=== PATIENT | male | born 1980 | race Caucasian/White ===

== ENCOUNTER 2016-10-19 10:06 | Emergency (ER) | payer BC, OTHER ==
[~2016-10-19] VITALS: Ht 193 cm; Wt 117.6 kg
[2016-10-19 10:15] VITALS: BP 148/88
[2016-10-19] MEDS ORDERED: OXYMETAZOLINE NASAL SPRAY 0.05%, 15ML ONE (10:44)
[2016-10-19] MEDS ORDERED: SILVER NITRATE STICK TP ONE ×2 (10:49→11:11)
[2016-10-19] MEDS ORDERED: BACITRACIN ZINC OINT 500U/GM, 0.9 GM ONE (11:11)
[2016-10-19] MEDS ORDERED: PHENYLEPHRINE NASAL 1%, 15ML SPRAY ONE (11:12)
== END 2016-10-19 13:13 | disposition home or self-care (01) ==
LOC: ED 12:38
DX: R04.0 Epistaxis (principal)
CPT/HCPCS: 30901